=== PATIENT | female | born 1940 | race Caucasian/White ===

== ENCOUNTER 2017-09-13 19:54 | Emergency (ER) | payer OTHER, MEDICAID ==
--- NOTE | 2017-09-13 20:09 | CPEKG ---
Heart Rate: 91 RR Interval: 659 P-R Interval: 172 QRSD Interval: 122 QT Interval: 388 QTC Interval: 478 P Brawley: 31 QRS Brawley: -23 T Wave Brawley: 20 EKG Severity - ABNORMAL ECG - EKG Impression: SINUS RHYTHM EKG Impression: PROBABLE LEFT ATRIAL ABNORMALITY EKG Impression: RIGHT BUNDLE BRANCH BLOCK Electronically Signed By: Terrance King 13-Sep-2017 21:58:00
--- NOTE | 2017-09-13 20:18 | EDPHY ---
H & P Time Seen by Provider: 09/13/17 20:02 HPI/ROS: Chief complaint. Syncope HPI. Patient is 77-year-old female here by EMS after syncopal episode at her residence. She has had previous syncope. Patient has no complaints and tells me she feels fine and can I go home. She has no chest discomfort or trouble breathing. No abdominal pain. She has had no vomiting. She has not been sick. Apparently she has been drinking fluids. Patient has no complaints ROS Constitutional. no fever/chills, no weakness Eyes. no problems with vision ENT. no sore throat, no nasal drainage Cardiovascular. no chest pain Respiratory. no shortness of breath, no cough Abdominal. no abdominal pain, no nausea/vomiting, no diarrhea . no problems urinating MS. no calf pain/swelling, no neck/back pain, no joint pain Skin. no rash Lymph. no swollen glands Neuro. Syncope Past Medical/Surgical History: Past medical history memory issues, COPD, schizophrenia, dementia, hypertension , bipolar, anxiety Social History: Single, nonsmoker, no alcohol Smoking Status: Never smoked Physical Exam: General Appearance: Alert pleasant well-developed female initially hypertensive however when I go to see the patient her current blood pressure is 102/64 Eyes: Left eye enucleation. ENT, Mouth: Mucous membranes are moist. Respiratory: There are no retractions, lungs are clear to auscultation. Cardiovascular: Regular rate and rhythm. Gastrointestinal: Abdomen is soft and nontender, no masses, bowel sounds normal. Neurological: Awake and alert, sensory and motor exams grossly normal. Skin: Warm and dry, no rashes. Musculoskeletal: Neck is supple nontender. Extremities symmetrical, full range of motion. Psychiatric: Patient is oriented X 3, there is no agitation. Constitutional: Initial Vital Signs Temperature (C) 36.8 C 09/13/17 20:06 Heart Rate 91 09/13/17 20:06 Respiratory Rate 18 09/13/17 20:06 Blood Pressure 81/47 L 09/13/17 20:06 O2 Sat (%) 96 09/13/17 20:06 O2 Delivery Mode Nasal Cannula O2 (L/minute) 2 Allergies/Adverse Reactions: lithium [Markle] Allergy (Verified 06/27/15 19:29) Home Medications: Medication Instructions Recorded Budesonide 180 Mcg INH [Pulmicort 1 puffs IH DAILY 11/21/12 180Mcg Flexhaler (*)] Ipratropium/Albuterol [Combivent 1 puffs IH QID 11/21/12 Inhaler] Albuterol [Proventil Neb] 3 ml IH Q2 PRN 01/21/14 Acetaminophen [Tylenol 325mg (*)] 650 mg PO Q8 PRN 03/27/15 Benztropine Mesylate [Cogentin] 1 mg PO BID 03/27/15 Bisacodyl [Dulcolax] 10 mg RC Q3D PRN 03/27/15 Cholecalciferol Vit D3 [Vitamin D3 1,000 units PO DAILY 03/27/15 (*)] Docusate Sodium [Colace 100 MG (*)] 100 mg PO BID PRN 03/27/15 Hydrochlorothiazide [HCTZ (*)] 25 mg PO DAILY 03/27/15 Ibuprofen [Motrin (*)] 400 mg PO Q8 PRN 03/27/15 Loratadine [Claritin 10 mg] 10 mg PO DAILY PRN 03/27/15 Magnesium Hydroxide [Milk of 30 ml PO DAILY PRN 03/27/15 Magnesia (*)] Magnesium Hydroxide/Al Hydrox 30 ml PO Q6 PRN 03/27/15 [Mylanta Liquid] OLANZapine [Zyprexa Zydis] 10 mg PO BID 03/27/15 Oxymetazoline HCl [Afrin] 2 spray NS BID PRN 03/27/15 Polyethylene Glycol 3350 [Miralax 17 gm PO DAILY 03/27/15 17 gm (*)] carBAMazepine [Tegretol] 400 mg PO BID 03/27/15 guaiFENesin [Guaifenesin] 400 mg PO BID PRN 03/27/15 levOFLOXACIN [levAQUIN] 500 mg PO BID #14 tab 07/14/15 Medical Decision Making - Diagnostics EKG Interpretation: EKG interpreted by me shows normal sinus rhythm with normal interval. There is left axis deviation. There is a right bundle branch block. QRS otherwise normal. There is no significant ST elevation or depression. There is no arrhythmia. The rate is 91 No significant change from previous EKG in June 2015 Procedures: IV normal saline, monitor ED Course/Re-evaluation: Re-evaluation at 9:15 p.m.. Patient is stable. She has no complaints. She would like to go home. She and I talked about lab an EKG evaluation. We discussed treatment plan including criteria for return importance of follow-up further evaluation. She expresses understanding and agreement Vitals show a current blood pressure of 115/79 and a heart rate of 80 Differential Diagnosis: Neurologically intact no evidence is CVA. No evidence of sepsis. No evidence for acute coronary syndrome. Syncope of unclear etiology. - Data Points Laboratory Results: Laboratory Results 09/13/17 20:00 09/13/17 20:00 09/13/17 09/13/17 09/13/17 20:13 20:11 20:00 WBC RBC Hgb POC Hgb 14.6 gm/dL gm/dL (12.6-16.3) Hct POC Hct 43 % % (38-47) MCV MCH MCHC RDW Plt Count MPV Neut % (Auto) Lymph % (Auto) [place] % (Auto) Eos % (Auto) Baso % (Auto) Nucleat RBC Rel Count Absolute Neuts (auto) Absolute Lymphs (auto) Absolute Monos (auto) Absolute Eos (auto) Absolute Basos (auto) Absolute Nucleated RBC Immature Gran % Immature Gran # POC Sodium 132 mEq/L L mEq/L (135-145) Sodium 129 mEq/L L mEq/L (135-145) POC Potassium 4.2 mEq/L mEq/L (3.3-5.0) Potassium 4.7 mEq/L mEq/L (3.3-5.0) POC Chloride 95 mEq/L L mEq/L (97-110) Chloride 93 mEq/L L mEq/L (97-110) Carbon Dioxide 24 mEq/l mEq/l (22-31) Anion Gap 12 mEq/L mEq/L (8-16) POC BUN 20 mg/dL mg/dL (7-23) BUN 19 mg/dL mg/dL (7-23) Creatinine 1.0 mg/dL mg/dL (0.6-1.0) POC Creatinine 1.1 mg/dL H mg/dL (0.6-1.0) Estimated GFR 54 Glucose 124 mg/dL H mg/dL (70-100) POC Glucose 135 mg/dL H mg/dL (70-100) Calcium 8.2 mg/dL L mg/dL (8.5-10.4) POC Troponin I 0.01 ng/mL ng/mL (0.00-0.08) 09/13/17 20:00 WBC 7.25 10^3/uL 10^3/uL (3.80-9.50) RBC 4.34 10^6/uL 10^6/uL (4.18-5.33) Hgb 14.3 g/dL g/dL (12.6-16.3) POC Hgb Hct 40.3 % % (38.0-47.0) POC Hct MCV 92.9 fL fL (81.5-99.8) MCH 32.9 pg pg (27.9-34.1) MCHC 35.5 g/dL g/dL (32.4-36.7) RDW 12.0 % % (11.5-15.2) Plt Count 317 10^3/uL 10^3/uL (150-400) MPV 8.2 fL L fL (8.7-11.7) Neut % (Auto) 53.7 % % (39.3-74.2) Lymph % (Auto) 30.1 % % (15.0-45.0) [place] % (Auto) 12.0 % % (4.5-13.0) Eos % (Auto) 2.8 % % (0.6-7.6) Baso % (Auto) 1.1 % % (0.3-1.7) Nucleat RBC Rel Count 0.0 % % (0.0-0.2) Absolute Neuts (auto) 3.90 10^3/uL 10^3/uL (1.70-6.50) Absolute Lymphs (auto) 2.18 10^3/uL 10^3/uL (1.00-3.00) Absolute Monos (auto) 0.87 10^3/uL H 10^3/uL (0.30-0.80) Absolute Eos (auto) 0.20 10^3/uL 10^3/uL (0.03-0.40) Absolute Basos (auto) 0.08 10^3/uL 10^3/uL (0.02-0.10) Absolute Nucleated RBC 0.00 10^3/uL 10^3/uL (0-0.01) Immature Gran % 0.3 % % (0.0-1.1) Immature Gran # 0.02 10^3/uL 10^3/uL (0.00-0.10) POC Sodium Sodium POC Potassium Potassium POC Chloride Chloride Carbon Dioxide Anion Gap POC BUN BUN Creatinine POC Creatinine Estimated GFR Glucose POC Glucose Calcium POC Troponin I Point of Care Test Results: Chemistry 09/13/17 09/13/17 20:13 20:11 POC Sodium 132 mEq/L L mEq/L (135-145) POC Potassium 4.2 mEq/L mEq/L (3.3-5.0) POC Chloride 95 mEq/L L mEq/L (97-110) POC BUN 20 mg/dL mg/dL (7-23) POC Creatinine 1.1 mg/dL H mg/dL (0.6-1.0) POC Glucose 135 mg/dL H mg/dL (70-100) POC Troponin I 0.01 ng/mL ng/mL (0.00-0.08) ISTAT H&H 09/13/17 20:13 POC Hgb 14.6 gm/dL gm/dL (12.6-16.3) POC Hct 43 % % (38-47) Departure - Departure Disposition: Home, Routine, Self-Care Clinical Impression: Syncope Qualifiers: Syncope type: unspecified Qualified Code(s): R55 - Syncope and collapse Condition: Good Instructions: Syncope (ED) Additional Instructions: Continue regular medications. Return for worsening symptoms. Recheck in 1 day if not continuing to improve Referrals: EDOUARD ARIAS [Primary Care Provider] - 1 day, if not improved
[2017-09-13 20:19] LABS: PLATELET COUNT 317 10^3/uL (150-400)
[2017-09-13 22:01] VITALS: BP 126/76
== END 2017-09-13 22:09 | disposition home or self-care (01) ==
LOC: EDUNIT#
DX: R55 Syncope and collapse (principal); J44.9 Chronic obstructive pulmonary disease, unspecified; I10 Essential (primary) hypertension
CPT/HCPCS: 82435-PO; 82565-PO; 82947-PO; 84132-PO; 84295-PO; 84484-PO; 84520-PO; 85014-PO